=== PATIENT | female | born 1955 | race Caucasian/White ===

== ENCOUNTER 2021-04-24 15:19 | Inpatient (IN) | payer OTHER ==
[~2021-04-24] VITALS: Ht 154.9 cm; Wt 50.2 kg
[2021-04-24] MEDS ORDERED: PANTOPRAZOLE 40 MG/10 ML VIAL INJ IV ONE (15:30)
[2021-04-24] MEDS ORDERED: ONDANSETRON HCL 4 MG/2 ML VIAL IV ONE (15:30)
[2021-04-24] MEDS ORDERED: MORPHINE SULFATE 4 MG/ML SYR/VIAL IV ONE (15:30)
[2021-04-24] MEDS ORDERED: SODIUM CHLORIDE 0.9% 500 ML IVB ONE (15:30)
[2021-04-24 16:00] LABS: Basophils # (auto) 0 10 ^3/uL (0-0.2); Basophils % (auto) 0.3 % (0.0-2.0); Eosinophils # (auto) 0 10 ^3/uL (0-0.8); Hematocrit 46.9 % (36.0-46.0); Hemoglobin 16.2 g/dL (12.2-16.2); Lymphocytes # (auto) 0.2 10 ^3/uL (0.4-5.4); Lymphocytes % (auto) 1.6 % (10.0-50.0); Mean Corpuscular Hemoglobin 32.7 pg (28.0-32.0); Mean Corpuscular Hgb Conc. 34.5 g/dL (32.0-36.0); Mean Corpuscular Volume 94.7 fL (80.0-100.0); Monocytes # (auto) 1.1 10 ^3/uL (0-1.3); Monocytes % (auto) 6.8 % (0.0-12.0); Neutrophils # (auto) 14.1 10 ^3/uL (1.6-8.6); Neutrophils % (auto) 91.3 % (37.0-80.0); Red Blood Cells 4.95 10^6/uL (4.0-5.20); Red Cell Distribution Width 12.4 % (11.8-14.3); White Blood Cell 15.4 10^3/uL (4.4-10.8)
[2021-04-24 16:16] LABS: INR 1.05 (0.9-1.15); Partial Thromboplastin Time 24.2 sec (23.6-33.0)
[2021-04-24 16:17] LABS: Albumin 4.2 g/dL (3.4-5.0); Calcium 10.3 mg/dL (8.5-10.1)
[2021-04-24 16:20] LABS: BUN/Creatinine Ratio 28.8
[2021-04-24] MEDS ORDERED: metroNIDAZOLE 500MG/100ML 100 ML IV ONE (16:30)
[2021-04-25] MEDS ORDERED: LOPERAMIDE HCL 2 MG CAP PO PRN (03:45)
[2021-04-25] MEDS: cefTRIAXone 1GM/50ML D5W 50 ML IV SCH (04:14)
[2021-04-25] MEDS: metroNIDAZOLE 500MG/100ML 100 ML IV SCH ×3 (06:11→22:12)
[2021-04-25] MEDS ORDERED: TEMAZEPAM 15 MG CAP PO PRN (07:30)
[2021-04-25] MEDS: LOSARTAN POTASSIUM 50 MG TAB PO SCH (09:38)
[2021-04-25] MEDS: ONDANSETRON HCL 4 MG/2 ML VIAL IV PRN ×2 (09:38→13:54)
[2021-04-25] MEDS: PANTOPRAZOLE 40 MG TAB PO SCH (09:38)
[2021-04-25] MEDS: HYDROcodone-ACET 5/325MG TAB PO PRN (09:40)
[2021-04-25 09:45] LABS: Basophils # (auto) 0.1 10 ^3/uL (0-0.2); Basophils % (auto) 0.4 % (0.0-2.0); Eosinophils # (auto) 0.5 10 ^3/uL (0-0.8); Eosinophils % (auto) 3.8 % (0.0-7.0); Hemoglobin 14.8 g/dL (12.2-16.2); Lymphocytes # (auto) 1.1 10 ^3/uL (0.4-5.4); Lymphocytes % (auto) 8.9 % (10.0-50.0); Mean Corpuscular Hemoglobin 33.1 pg (28.0-32.0); Mean Corpuscular Hgb Conc. 35.2 g/dL (32.0-36.0); Mean Corpuscular Volume 94.1 fL (80.0-100.0); Monocytes # (auto) 1.4 10 ^3/uL (0-1.3); Monocytes % (auto) 12.1 % (0.0-12.0); Neutrophils # (auto) 8.9 10 ^3/uL (1.6-8.6); Neutrophils % (auto) 74.8 % (37.0-80.0); Red Blood Cells 4.47 10^6/uL (4.0-5.20); Red Cell Distribution Width 12.6 % (11.8-14.3); White Blood Cell 11.9 10^3/uL (4.4-10.8)
[2021-04-25 10:02] LABS: Albumin 3.4 g/dL (3.4-5.0); Calcium 8.8 mg/dL (8.5-10.1)
[2021-04-25 10:06] LABS: BUN/Creatinine Ratio 30.7; Bilirubin, Total 0.6 mg/dL (0.2-1.0); Total Protein 6.8 g/dL (6.4-8.2)
[2021-04-25 10:10] LABS: Magnesium 2.3 mg/dL (1.6-2.6); Phosphorus 3.5 mg/dL (2.5-4.90)
[2021-04-25] MEDS ORDERED: MORPHINE SULFATE INJECTION 2 MG/ML SYRG IV PRN (13:15)
[2021-04-25 17:30] VITALS: BP 121/79
[2021-04-25 17:31] VITALS: BP 121/79
[2021-04-25] MEDS: ACETAMINOPHEN 325 MG TAB PO PRN (17:46)
[2021-04-25] MEDS ORDERED: DILT-29 PO (18:34)
[2021-04-25] MEDS ORDERED: ESTR0.3T PO (18:34)
[2021-04-25] MEDS ORDERED: BUPR75TA10 PO (18:34)
[2021-04-25] MEDS ORDERED: OMEP20TA PO (18:34)
[2021-04-25] MEDS ORDERED: LORA10CA7 PO (18:34)
[2021-04-25] MEDS ORDERED: DICL50TA2 PO (18:34)
[2021-04-25] MEDS ORDERED: LEVO125T PO (18:34)
[2021-04-25] MEDS ORDERED: MULT-1026 PO (18:34)
[2021-04-25] MEDS ORDERED: LOSA-39 PO (18:34)
[2021-04-25] MEDS ORDERED: AMIT25TA12 PO (18:34)
[2021-04-25] MEDS ORDERED: MULT-927 PO (18:34)
[2021-04-25] MEDS ORDERED: MELA3TAB27 PO (18:34)
[2021-04-25] MEDS ORDERED: ASPITAB34 PO (18:34)
[2021-04-25] MEDS ORDERED: CHOL20007 PO (18:34)
[2021-04-25] MEDS ORDERED: CYA100I PO (18:34)
[2021-04-25] MEDS ORDERED: ASCO500T11 PO (18:34)
[2021-04-25] MEDS ORDERED: DIPH25CA66 PO (18:34)
[2021-04-25] MEDS ORDERED: LYSI500C4 PO (18:34)
[2021-04-25] MEDS ORDERED: ZINC50TA7 PO (18:34)
[2021-04-25] MEDS ORDERED: IBUP1CAP12 PO (18:34)
[2021-04-25 18:58] LABS: Hematocrit 40.1 % (36.0-46.0); Hemoglobin 13.9 g/dL (12.2-16.2)
[2021-04-25 19:54] LABS: Urine Bacteria NONE SEEN /hpf (None Seen); Urine Blood Negative /uL (Negative); Urine Mucus FEW (None Seen); Urine Specific Gravity 1.028 (1.001-1.035); Urine WBC 1 /hpf (0 - 5)
[2021-04-25 22:00] VITALS: BP 115/70
[2021-04-26 05:00] VITALS: BP 124/79
[2021-04-26 05:15] LABS: Basophils # (auto) 0 10 ^3/uL (0-0.2); Basophils % (auto) 0.3 % (0.0-2.0); Eosinophils # (auto) 0.8 10 ^3/uL (0-0.8); Eosinophils % (auto) 7.8 % (0.0-7.0); Hematocrit 39.5 % (36.0-46.0); Hemoglobin 13.9 g/dL (12.2-16.2); Lymphocytes # (auto) 0.7 10 ^3/uL (0.4-5.4); Lymphocytes % (auto) 7.5 % (10.0-50.0); Mean Corpuscular Hemoglobin 33.1 pg (28.0-32.0); Mean Corpuscular Hgb Conc. 35.1 g/dL (32.0-36.0); Mean Corpuscular Volume 94.4 fL (80.0-100.0); Monocytes # (auto) 0.8 10 ^3/uL (0-1.3); Monocytes % (auto) 7.6 % (0.0-12.0); Neutrophils # (auto) 7.6 10 ^3/uL (1.6-8.6); Neutrophils % (auto) 76.8 % (37.0-80.0); Red Blood Cells 4.19 10^6/uL (4.0-5.20); Red Cell Distribution Width 12.4 % (11.8-14.3); White Blood Cell 9.8 10^3/uL (4.4-10.8)
[2021-04-26 05:30] LABS: BUN/Creatinine Ratio 26.2; Calcium 8.4 mg/dL (8.5-10.1)
[2021-04-26] MEDS: metroNIDAZOLE 500MG/100ML 100 ML IV SCH ×3 (06:18→21:43)
[2021-04-26] MEDS: ACETAMINOPHEN 325 MG TAB PO PRN (06:24)
[2021-04-26] MEDS: cefTRIAXone 1GM/50ML D5W 50 ML IV SCH (09:14)
[2021-04-26] MEDS: PANTOPRAZOLE 40 MG TAB PO SCH (09:15)
[2021-04-26] MEDS: LEVOTHYROXINE SODIUM 25 MCG TAB PO SCH (09:15)
[2021-04-26] MEDS: LEVOTHYROXINE SODIUM 100 MCG TAB PO SCH (09:15)
[2021-04-26] MEDS: LOSARTAN POTASSIUM 50 MG TAB PO SCH (09:16)
[2021-04-26 09:50] VITALS: BP 125/61
[2021-04-26 13:00] VITALS: BP 123/75
[2021-04-26] MEDS: HYDROcodone-ACET 5/325MG TAB PO PRN ×2 (13:58→21:42)
[2021-04-26 16:49] VITALS: BP 151/78
[2021-04-26 20:00] VITALS: BP 136/80
[2021-04-26 22:00] VITALS: BP 136/80
[2021-04-27 04:57] LABS: Basophils # (auto) 0.1 10 ^3/uL (0-0.2); Basophils % (auto) 0.8 % (0.0-2.0); Eosinophils # (auto) 0.7 10 ^3/uL (0-0.8); Eosinophils % (auto) 9.8 % (0.0-7.0); Hematocrit 39.6 % (36.0-46.0); Hemoglobin 13.9 g/dL (12.2-16.2); Lymphocytes # (auto) 0.8 10 ^3/uL (0.4-5.4); Lymphocytes % (auto) 11.8 % (10.0-50.0); Mean Corpuscular Hgb Conc. 35.2 g/dL (32.0-36.0); Mean Corpuscular Volume 93.7 fL (80.0-100.0); Monocytes # (auto) 0.7 10 ^3/uL (0-1.3); Monocytes % (auto) 9.9 % (0.0-12.0); Neutrophils # (auto) 4.8 10 ^3/uL (1.6-8.6); Neutrophils % (auto) 67.7 % (37.0-80.0); Nucleated Red Blood Cells % 0.2 %; Red Blood Cells 4.23 10^6/uL (4.0-5.20)
[2021-04-27 05:00] VITALS: BP 118/75
[2021-04-27 05:30] LABS: Albumin 3.1 g/dL (3.4-5.0); Calcium 8.7 mg/dL (8.5-10.1); Potassium 3.8 mmol/L (3.5-5.1)
[2021-04-27 05:32] LABS: BUN/Creatinine Ratio 23.2
[2021-04-27 05:35] LABS: Bilirubin, Total 0.4 mg/dL (0.2-1.0); Total Protein 5.9 g/dL (6.4-8.2)
[2021-04-27] MEDS: LEVOTHYROXINE SODIUM 25 MCG TAB PO SCH (06:25)
[2021-04-27] MEDS: LEVOTHYROXINE SODIUM 100 MCG TAB PO SCH (06:25)
[2021-04-27] MEDS: metroNIDAZOLE 500MG/100ML 100 ML IV SCH ×3 (06:26→21:25)
[2021-04-27] MEDS: ONDANSETRON HCL 4 MG/2 ML VIAL IV PRN (07:40)
[2021-04-27 08:36] VITALS: BP 136/83
[2021-04-27] MEDS: cefTRIAXone 1GM/50ML D5W 50 ML IV SCH (09:10)
[2021-04-27] MEDS: LOSARTAN POTASSIUM 50 MG TAB PO SCH (09:11)
[2021-04-27] MEDS: PANTOPRAZOLE 40 MG TAB PO SCH (09:11)
[2021-04-27] MEDS: SUCRALFATE 1 GM/10 ML ORAL SUSP PO SCH ×3 (11:18→21:25)
[2021-04-27] MEDS: HYDROcodone-ACET 5/325MG TAB PO PRN (11:21)
[2021-04-27 13:00] VITALS: BP 139/78
[2021-04-27 16:42] VITALS: BP 146/78
[2021-04-27 22:00] VITALS: BP 125/71
[2021-04-28 05:28] VITALS: BP 126/76
[2021-04-28] MEDS: LEVOTHYROXINE SODIUM 100 MCG TAB PO SCH (06:13)
[2021-04-28] MEDS: LEVOTHYROXINE SODIUM 25 MCG TAB PO SCH (06:13)
[2021-04-28] MEDS: metroNIDAZOLE 500MG/100ML 100 ML IV SCH ×3 (06:13→21:38)
[2021-04-28 06:22] LABS: Potassium 4.3 mmol/L (3.5-5.1)
[2021-04-28] MEDS: SUCRALFATE 1 GM/10 ML ORAL SUSP PO SCH ×4 (06:22→21:38)
[2021-04-28 06:32] LABS: Albumin 2.9 g/dL (3.4-5.0); BUN/Creatinine Ratio 21.4; Bilirubin, Total 0.3 mg/dL (0.2-1.0); Calcium 8.6 mg/dL (8.5-10.1); Total Protein 6.3 g/dL (6.4-8.2)
[2021-04-28 06:53] LABS: Basophils # (auto) 0 10 ^3/uL (0-0.2); Basophils % (auto) 0.6 % (0.0-2.0); Eosinophils # (auto) 0.7 10 ^3/uL (0-0.8); Eosinophils % (auto) 10.2 % (0.0-7.0); Hematocrit 38.9 % (36.0-46.0); Hemoglobin 13.8 g/dL (12.2-16.2); Mean Corpuscular Hemoglobin 33.8 pg (28.0-32.0); Mean Corpuscular Hgb Conc. 35.6 g/dL (32.0-36.0); Mean Corpuscular Volume 94.9 fL (80.0-100.0); Monocytes # (auto) 0.7 10 ^3/uL (0-1.3); Monocytes % (auto) 10.9 % (0.0-12.0); Neutrophils # (auto) 4.1 10 ^3/uL (1.6-8.6); Neutrophils % (auto) 63.3 % (37.0-80.0); Red Blood Cells 4.09 10^6/uL (4.0-5.20); Red Cell Distribution Width 12.5 % (11.8-14.3); White Blood Cell 6.5 10^3/uL (4.4-10.8)
[2021-04-28] MEDS: cefTRIAXone 1GM/50ML D5W 50 ML IV SCH (08:20)
[2021-04-28] MEDS: PANTOPRAZOLE 40 MG TAB PO SCH (08:20)
[2021-04-28] MEDS: LOSARTAN POTASSIUM 50 MG TAB PO SCH (08:21)
[2021-04-28 09:00] VITALS: BP 130/70
[2021-04-28 13:00] VITALS: BP 122/71
[2021-04-28] MEDS: HYDROcodone-ACET 5/325MG TAB PO PRN (16:12)
[2021-04-28 17:05] VITALS: BP 131/83
[2021-04-28] MEDS: ONDANSETRON HCL 4 MG/2 ML VIAL IV PRN (19:49)
[2021-04-28 22:56] VITALS: BP 117/75
[2021-04-29 03:36] VITALS: BP 126/77
[2021-04-29] MEDS: LEVOTHYROXINE SODIUM 100 MCG TAB PO SCH (06:01)
[2021-04-29] MEDS: LEVOTHYROXINE SODIUM 25 MCG TAB PO SCH (06:01)
[2021-04-29] MEDS: SUCRALFATE 1 GM/10 ML ORAL SUSP PO SCH ×2 (06:01→11:30)
[2021-04-29] MEDS: metroNIDAZOLE 500MG/100ML 100 ML IV SCH ×2 (06:01→14:00)
[2021-04-29 07:56] LABS: Hematocrit 40.9 % (36.0-46.0); Hemoglobin 14.4 g/dL (12.2-16.2)
[2021-04-29 08:16] LABS: Potassium 4.3 mmol/L (3.5-5.1)
[2021-04-29 08:30] VITALS: BP 121/77
[2021-04-29] MEDS: PANTOPRAZOLE 40 MG TAB PO SCH (08:55)
[2021-04-29] MEDS: LOSARTAN POTASSIUM 50 MG TAB PO SCH (08:58)
[2021-04-29] MEDS: cefTRIAXone 1GM/50ML D5W 50 ML IV SCH (08:58)
[2021-04-29] MEDS: HYDROcodone-ACET 5/325MG TAB PO PRN (09:03)
[2021-04-29] MEDS ORDERED: LEVO500T31 PO (10:22)
[2021-04-29] MEDS ORDERED: METR500T PO (10:22)
[2021-04-29 12:30] VITALS: BP 135/81
== END 2021-04-29 15:25 | disposition home or self-care (01) | DRG 872 ==
LOC: EDBD 15:19 → ER 15:19 → OVERFLOW 04-25 03:45 → CENTRAL 04-25 16:59
PROVIDERS: ADMIT Nurse Practitioner; ATTEND Internal Medicine
DX: A41.9 Sepsis, unspecified organism (principal); K52.9 Noninfective gastroenteritis and colitis, unspecified; Z20.822 Contact with and (suspected) exposure to COVID-19; N20.0 Calculus of kidney; E03.9 Hypothyroidism, unspecified; G43.909 Migraine, unspecified, not intractable, without status migrainosus; N18.9 Chronic kidney disease, unspecified; I12.9 Hypertensive chronic kidney disease with stage 1 through stage 4 chronic kidney disease, or unspecified chronic kidney disease; Z88.1 Allergy status to other antibiotic agents; Z79.899 Other long term (current) drug therapy
CPT/HCPCS: 36415; 74176; 80048; 80053; 81001; 82150; 83690; 83735; 84100; 84443; 85014; 85018; 85025; 85048; 85610; 85730; 87040; 87045; 87426; 87427; 87493; 96365; 96366; 96375; C9113; G0378; J0696; J2405; J3490